=== PATIENT | male | born 1970 | race Caucasian/White ===

== ENCOUNTER 2017-11-20 12:11 | Emergency (ER) | payer SELFPAY ==
--- NOTE | 2017-11-20 13:15 | EDPHY ---
H & P Stated Complaint: Witnesses SZ today. Fall from standing Time Seen by Provider: 11/20/17 13:02 HPI/ROS: CHIEF COMPLAINT: Witnessed seizure, no head injury HISTORY OF PRESENT ILLNESS: 47-year-old male with known seizure disorder secondary to skull fracture intracranial hemorrhage in late arrives via ambulance after a witnessed seizure while he was at work. Witnesses described generalized tonic-clonic like movements. He is not taking antiepileptic medications noting that he does not like their side effects. He has previously seen a neurologist, has not seen a neurologist in several years. He drank higher than normal amounts of alcohol yesterday which he states typical triggers a breakthrough seizure. At the time I interview and examine him he is pain free, asymptomatic. His 30+ year friend is here with him notes that he is acting normal. REVIEW OF SYSTEMS: A ten point review of systems was performed and is negative with the exception of the items mentioned in the HPI PAST MEDICAL/SURGICAL HISTORY: no anticoagulant use, seizure disorder SOCIAL HISTORY: Last drink of alcohol 6:00 p.m. Yesterday. Normally drinks 1 drink per week PHYSICAL EXAM 1) GENERAL: Well-developed, well-nourished, alert and oriented. Appears to be in no acute distress. Answering questions appropriately. 2) HEAD: Normocephalic, atraumatic 3) HEENT: Pupils equal, round, reactive to light bilaterally. Negative Horners. Nasopharynx, oropharynx, clear. No deformity or angulation of nose. No septal hematoma. No rhinorrhea. No oral trauma. Ears bilaterally with normal tympanic membranes. No hemotympanum. No fluid or blood in the external auditory canal. No raccoon eyes. No Roberts sign. Teeth are normally aligned with no gross malocclusion, TMJ bilaterally nontender, facial bones nontender including the zygomatic arch, maxilla mandible. 4) NECK: Cervical collar is on.Cervical collar is removed while holding inline traction and patient has no complaints of midline cervical pain, no effusion noted, trachea midline, no JVD. Cervical collar removed at that time. 5) LUNGS: Clear to auscultation bilaterally, no wheezes, no rhonchi, no retractions. No obvious signs of trauma. No chest wall pain. No flaring, no grunting. Moving symmetrically. No crepitus. 6) HEART: [Regular rate and rhythm, 7) ABDOMEN: No guarding, no rebound, no focal tenderness, no peritoneal signs, no signs of trauma, no ecchymosis 8) MUSCULOSKELETAL: Moving all extremities, no focal areas of tenderness, no obvious trauma. 9) BACK: No midline vertebral tenderness, no fluctuance, no step-off, no obvious trauma, no visual or palpable abnormality. 10) SKIN: No laceration. No abrasion 11) NEURO: Awake, alert, and oriented to person, place and time. Answers questions appropriately. There were no obvious focal neurologic abnormalities. No cerebellar dysfunction. Cranial nerves 2 through to 12 intact. Normal steady gait. Upper and lower extremities bilaterally with strength 5 / 5, reflexes 2+. DIFFERENTIAL DIAGNOSIS: In no particular order including but not limited to epilepsy, alcohol withdrawal seizure, intracranial hemorrhage - Personal History Current Tetanus/Diphtheria Vaccine: Yes - Medical/Surgical History Hx Asthma: No Hx Chronic Respiratory Disease: No Hx Diabetes: No Hx Cardiac Disease: No Hx Renal Disease: No Hx Cirrhosis: No Hx Alcoholism: No Hx HIV/AIDS: No Hx Splenectomy or Spleen Trauma: No Other PMH: SZ - Social History Smoking Status: Current every day smoker Constitutional: Initial Vital Signs Temperature (C) 36.9 C 11/20/17 12:11 Heart Rate 98 11/20/17 12:11 Respiratory Rate 16 11/20/17 12:11 Blood Pressure 144/92 H 11/20/17 12:11 O2 Sat (%) 96 11/20/17 12:11 O2 Delivery Mode Room Air Allergies/Adverse Reactions: Penicillins Allergy (Verified 11/20/17 12:17) Home Medications: Medication Instructions Recorded Cbd Oil 11/20/17 Medical Decision Making ED Course/Re-evaluation: 1:14 p.m.: This patient is currently answering questions appropriately, no postictal symptoms. He would like to be discharged. I have recommended and offered to start him on antiepileptics which he declines. He does request name of neurologist stating that he may follow up with a neurologist. Usual and customary seizure precautions and instructions provided including, not limited to, no driving, no operating machinery, no swimming and similar. Care of patient under supervision of secondary supervising physician Dr Blevins . Departure - Departure Disposition: Home, Routine, Self-Care Clinical Impression: Seizure Condition: Good Instructions: Epilepsy (ED) Additional Instructions: You may have had a seizure. Until your cleared by the your neurologist do not: Drive, swim alone, climb to heights, operate machinery Referrals: Matheus Brunson DO [Doctor of Osteopathy] - 2-3 days, call for appt. (Dr. Matheus Brunson is a neurologist)
[2017-11-20 13:29] VITALS: BP 123/80; PULSE 84; RESP 18; TEMP 98.2; O2SAT 97
== END 2017-11-20 13:29 | disposition home or self-care (01) ==
DX: G40.909 Epilepsy, unspecified, not intractable, without status epilepticus (principal); F17.200 Nicotine dependence, unspecified, uncomplicated

== ENCOUNTER 2017-11-22 11:31 | Emergency (ER) | payer SELFPAY ==
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
[2017-11-22 13:17] VITALS: BP 110/79; PULSE 54; RESP 18; TEMP 98.6; O2SAT 99
== END 2017-11-22 13:15 | disposition home or self-care (01) ==
DX: G44.89 Other headache syndrome (principal); F17.200 Nicotine dependence, unspecified, uncomplicated